=== PATIENT | male | born 1955 | race Caucasian/White ===

== ENCOUNTER → 2017-05-17 | Day surgery (SDC) | payer OTHER ==
[~2017-05-17] VITALS: Ht 185.4 cm; Wt 114.0 kg
[~2017-05-17] MED LIST: AMPICILLIN/SULBAC 3 GM/NS 100 ML IV SCH; CHLORHEXIDINE GLUCONATE 2 % 1 PACK (2 CLOTHS) TOPICAL PRN; INSULIN HUMAN REGULAR 1,000 UNITS/10 ML VIAL SQ PRN; LACTATED RINGER'S 1000 ML IV PRN; LISI10TA PO; METOPROLOL TARTRATE 25 MG TAB PO PRN; POVIDONE IODINE 5% (ANTISEPSIS KIT) 4 APPLICATIONS EACH NARE PRN; SODIUM CHLORID 0.9% 500 ML IV PRN; fentaNYL CITRATE 250 MCG/5 ML AMP ONE
[2017-05-17 10:55] VITALS: PULSE 77
[2017-05-17 12:25] VITALS: BP 150/93; PULSE 68; RESP 16; TEMP 98.4; O2SAT 94
--- NOTE | 2017-05-17 17:06 | MP ---
cc: Addison Brown MD DATE OF OPERATION: 05/17/2017 SURGEON: Addison Brown MD PREOPERATIVE DIAGNOSES: Possible foreign body, hypopharynx. POSTOPERATIVE DIAGNOSIS: Possible foreign body, hypopharynx. OPERATION PERFORMED: Direct laryngoscopy, examination of hypopharynx and removal of foreign body. INDICATIONS FOR PROCEDURE: Documented in history and physical. DETAILS OF PROCEDURE: The patient was taken to OR #2 and placed in the supine position. Following induction of general anesthesia and intubation, a shoulder roll and a Ed head drape were put in place. A dental guard was placed and then the patient was examined in the hypopharynx and larynx. Using an anterior commissure scope, there was no evidence of lesions in the areas he described. The vallecula and piriform sinuses were then examined manually and there was no evidence of any firm foreign bodies noted. There are no signs of inflammation or mucosal trauma in the hypopharynx and larynx. The scope was removed and the procedure was terminated. The patient was reversed from anesthesia and taken to recovery in good condition. COMPLICATIONS: No complications. BLOOD LOSS: Less than 5 mL. MD COMPA Sims/YAA , 04:46 PM , 05:05 PM
== END | disposition home or self-care (01) ==
LOC: PHSDC 08:53
PROVIDERS: ATTEND Otolaryngology
DX: R07.0 Pain in throat (principal); R49.0 Dysphonia; I10 Essential (primary) hypertension; K21.9 Gastro-esophageal reflux disease without esophagitis
CPT/HCPCS: 00320; 31525; J0295; J3010; J7120